=== PATIENT | male | born 1940 | race Caucasian/White ===

== ENCOUNTER 2024-03-30 08:39 | Inpatient (IN) | payer BC ==
[~2024-03-30] VITALS: Ht 180.3 cm; Wt 97.5 kg
[~2024-03-30 08:39] MED LIST: HYDR-4004 PO; LOSA50TA57 PO; RIVA20TA PO; SIMV-373 PO
[2024-03-30 08:40] VITALS: BP 117/59; PULSE 82; RESP 18; TEMP 98.5; O2SAT 97
[2024-03-30] MEDS: ONDANSETRON 4 MG/2 ML VIAL IVP ONE (09:36)
[2024-03-30] MEDS: MORPHINE SULFATE 4 MG/ML SYR IVP ONE (09:36)
[2024-03-30 09:51] LABS: ANION GAP 15.4 (8-16); CALCIUM 8.9 mg/dL (8.5-10.1); CARBON DIOXIDE 29.3 mmol/L (21-32); CHLORIDE 97 mmol/L (98-107); CREATININE 1.6 mg/dL (0.6-1.3); GLUCOSE 118 mg/dL (74-106); POTASSIUM 3.7 mmol/L (3.5-5.1); SODIUM SERUM 138 mmol/L (136-145); UREA NITROGEN, BLOOD 24 mg/dL (7-18)
[2024-03-30 09:52] LABS: INR 1.16 (0.8-1.2); PROTHROMBIN TIME 12.1 secs (10.8-13.4)
[2024-03-30 10:03] LABS: BASOPHILS % (AUTO) 0.5 % (0.0-2.0); EOSINOPHILS # (AUTO) 0.2 K/uL (0-0.4); EOSINOPHILS % (AUTO) 2.1 % (0.0-4.0); HEMATOCRIT 38.6 % (36-52); HEMOGLOBIN 12.9 g/dL (12.0-18.0); LYMPHOCYTES # (AUTO) 0.9 K/uL (2.0-11.5); LYMPHOCYTES % (AUTO) 11.4 % (20.5-51.1); MEAN CORPUSCULAR HEMOGLOBIN 31 pg (27-31); MEAN CORPUSCULAR HGB CONC 33 g/dL (33-37); MEAN CORPUSCULAR VOLUME 92.3 fL (80-94); MONOCYTES # (AUTO) 0.6 K/uL (0.8-1.0); MONOCYTES % (AUTO) 7.6 % (1.7-9.3); NEUTROPHILS # (AUTO) 6.5 K/uL (1.8-7.7); NEUTROPHILS % (AUTO) 78.4 % (42.2-75.2); PLATELET COUNT (AUTO) 182 K/uL (140-450); RED BLOOD CELL COUNT(AUTO) 4.19 MIL/uL (4.20-6.10); RED CELL DISTRIBUTION WIDTH 14.5 % (11.6-13.7); WHITE BLOOD COUNT (AUTO) 8.3 K/uL (4.8-10.8)
[2024-03-30] MEDS ORDERED: MORPHINE SULFATE 2 MG/ML SYR IVP PRN (11:45)
[2024-03-30] MEDS ORDERED: ACETAMINOPHEN 325 MG TAB PO PRN (11:45)
[2024-03-30] MEDS ORDERED: ONDANSETRON 4 MG/2 ML VIAL IVP PRN (11:45)
[2024-03-30] MEDS: NACL 0.9% 1,000 ML IV SCH (12:00)
[2024-03-30 14:09] VITALS: PULSE 60; RESP 18; O2SAT 95
[2024-03-30 16:00] VITALS: BP 145/50; PULSE 60; RESP 20; TEMP 98.4; O2SAT 96
[2024-03-30] MEDS ORDERED: AMLO10TA89 PO (18:15)
[2024-03-30] MEDS ORDERED: MULT-2253 PO (18:15)
[2024-03-30] MEDS ORDERED: PSYL0.4C2 PO (18:15)
[2024-03-30] MEDS ORDERED: CALC-810 PO (18:15)
[2024-03-30] MEDS ORDERED: POLY17PD46 PO (18:15)
[2024-03-30 20:00] VITALS: BP 124/44; PULSE 47; RESP 18; TEMP 97.3; O2SAT 95
[2024-03-30] MEDS: SIMVASTATIN 40 MG TAB PO SCH (22:29)
[2024-03-31 04:00] VITALS: BP 116/44; PULSE 47; RESP 18; TEMP 96.9; O2SAT 97
[2024-03-31 06:48] LABS: BASOPHILS % (AUTO) 0.4 % (0.0-2.0); EOSINOPHILS # (AUTO) 1.4 K/uL (0-0.4); EOSINOPHILS % (AUTO) 14.4 % (0.0-4.0); HEMATOCRIT 36.4 % (36-52); HEMOGLOBIN 12.3 g/dL (12.0-18.0); LYMPHOCYTES # (AUTO) 2.1 K/uL (2.0-11.5); LYMPHOCYTES % (AUTO) 22.4 % (20.5-51.1); MEAN CORPUSCULAR HEMOGLOBIN 31 pg (27-31); MEAN CORPUSCULAR HGB CONC 34 g/dL (33-37); MEAN CORPUSCULAR VOLUME 92.1 fL (80-94); MONOCYTES # (AUTO) 0.8 K/uL (0.8-1.0); MONOCYTES % (AUTO) 8.5 % (1.7-9.3); NEUTROPHILS # (AUTO) 5.2 K/uL (1.8-7.7); NEUTROPHILS % (AUTO) 54.3 % (42.2-75.2); PLATELET COUNT (AUTO) 175 K/uL (140-450); RED BLOOD CELL COUNT(AUTO) 3.95 MIL/uL (4.20-6.10); RED CELL DISTRIBUTION WIDTH 13.9 % (11.6-13.7); WHITE BLOOD COUNT (AUTO) 9.6 K/uL (4.8-10.8)
[2024-03-31 07:09] LABS: ANION GAP 8.3 (8-16); CALCIUM 8.2 mg/dL (8.5-10.1); CARBON DIOXIDE 31.8 mmol/L (21-32); CHLORIDE 103 mmol/L (98-107); CREATININE 1.2 mg/dL (0.6-1.3); GLUCOSE 88 mg/dL (74-106); POTASSIUM 4.1 mmol/L (3.5-5.1); SODIUM SERUM 139 mmol/L (136-145); UREA NITROGEN, BLOOD 19 mg/dL (7-18)
[2024-03-31 07:15] LABS: MAGNESIUM 2.1 mg/dL (1.8-2.4); PHOSPHORUS 3.2 mg/dL (2.5-4.9)
[2024-03-31 08:00] VITALS: BP 116/39; PULSE 39; RESP 18; TEMP 97.9; O2SAT 98
[2024-03-31] MEDS: CHOLECALCIFEROL 1,000 IU TAB PO SCH (09:31)
[2024-03-31] MEDS: amLODIPine 5 MG TAB PO SCH (09:32)
[2024-03-31] MEDS: MULTIVITAMIN 1 TAB PO SCH (09:32)
[2024-03-31] MEDS: LOSARTAN 50 MG TAB PO SCH (09:32)
[2024-03-31] MEDS: PSYLLIUM 12.2 GM/PKT PO SCH (09:33)
[2024-03-31] MEDS: POLYETHYLENE GLYCOL 17 GM/PKT PO SCH (09:33)
[2024-03-31 13:00] VITALS: BP 116/39; PULSE 39; RESP 18; TEMP 97.9; O2SAT 98
[2024-03-31 16:00] VITALS: BP 146/61; PULSE 66; RESP 18; TEMP 97.6; O2SAT 97
[2024-03-31 20:00] VITALS: BP 143/63; PULSE 51; RESP 18; TEMP 97.7; O2SAT 96
[2024-04-01 04:00] VITALS: BP 137/63; PULSE 44; RESP 18; TEMP 97.8; O2SAT 96
[2024-04-01 06:56] LABS: BASOPHILS % (AUTO) 0.4 % (0.0-2.0); EOSINOPHILS % (AUTO) 13.7 % (0.0-4.0); HEMOGLOBIN 13.1 g/dL (12.0-18.0); LYMPHOCYTES # (AUTO) 1.6 K/uL (2.0-11.5); LYMPHOCYTES % (AUTO) 21.2 % (20.5-51.1); MEAN CORPUSCULAR HEMOGLOBIN 31 pg (27-31); MEAN CORPUSCULAR HGB CONC 35 g/dL (33-37); MEAN CORPUSCULAR VOLUME 90.9 fL (80-94); MONOCYTES # (AUTO) 0.8 K/uL (0.8-1.0); MONOCYTES % (AUTO) 10.3 % (1.7-9.3); NEUTROPHILS % (AUTO) 54.4 % (42.2-75.2); PLATELET COUNT (AUTO) 184 K/uL (140-450); RED BLOOD CELL COUNT(AUTO) 4.18 MIL/uL (4.20-6.10); RED CELL DISTRIBUTION WIDTH 14.1 % (11.6-13.7); WHITE BLOOD COUNT (AUTO) 7.4 K/uL (4.8-10.8)
[2024-04-01 07:10] LABS: ANION GAP 9.5 (8-16); CALCIUM 8.4 mg/dL (8.5-10.1); CARBON DIOXIDE 31.2 mmol/L (21-32); CHLORIDE 103 mmol/L (98-107); CREATININE 1.2 mg/dL (0.6-1.3); GLUCOSE 104 mg/dL (74-106); POTASSIUM 3.7 mmol/L (3.5-5.1); SODIUM SERUM 140 mmol/L (136-145); UREA NITROGEN, BLOOD 15 mg/dL (7-18)
[2024-04-01 08:00] VITALS: BP 127/63; PULSE 59; RESP 18; TEMP 97.9; O2SAT 96; O2SAT 97
== END 2024-04-01 12:55 | disposition home or self-care (01) | DRG 686 ==
LOC: MED 08:39 → MMU 11:45 → MTU 12:22
PROVIDERS: ADMIT Hospitalist; ATTEND Hospitalist
DX: C67.9 Malignant neoplasm of bladder, unspecified (principal); N17.0 Acute kidney failure with tubular necrosis; I48.0 Paroxysmal atrial fibrillation; Z79.899 Other long term (current) drug therapy
CPT/HCPCS: 36415; 80048; 83735; 84100; 85025; 85610; 87081; 93005; 99285; J2270; J2405